=== PATIENT | female | born 1965 | race American Indian/Alaskan Native ===

== ENCOUNTER 2018-06-27 10:32 | Observation (INO) | payer MEDICAID, OTHER ==
--- NOTE | 2018-06-27 11:32 | ED PDOC ---
Arrival/HPI - General Chief Complaint: Chest Pain Time Seen by Provider: 06/27/18 10:44 Historian: Patient - History of Present Illness Narrative History of Present Illness (Text): 06/27/18 11:21 53 year old female, with past medical history of anemia, anxiety, arthritis, asthma, bipolar disorder, bronchitis, COPD, depression, and HTN, presents to the Emergency department via EMS complaining of sudden onset of chest pain since this morning. Patient states pain started approximately 1 hour prior arrival as she was walking. Denies pleuritic pain. Patient states radiating pain to her left arm making it "hard to breathe". Patient reports receiving aspirin prior to arrival with improvement to symptoms. She denies leg pain or swelling. She denies numbness or tingling. Pain does not radiate to neck or back. States that she has had this pain intermittently in the past but symptoms will go away and she has not seen a regional clinical director in past. Time/Duration: Prior to Arrival Symptom Onset: Gradual Symptom Course: Improving Quality: Aching Activities at Onset: Light Context: Home Past Medical History - Provider Review Nursing Documentation Reviewed: Yes - Infectious Disease Hx of Infectious Diseases: None - Tetanus Immunization Tetanus Immunization: Unknown - Past Medical History Past Medical History: Unable to Obtain - Cardiac Hx Heart Murmur: Yes Hx Hypertension: Yes - Pulmonary Hx Asthma: Yes Hx Bronchitis: Yes Hx Chronic Obstructive Pulmonary Disease (COPD): Yes - HEENT Hx HEENT Disorder: No - Hematological/Oncological Hx Anemia: Yes - Integumentary Hx Dermatological Disorder: No - Musculoskeletal/Rheumatological Hx Arthritis: Yes - Genitourinary/Gynecological Hx Sexually Transmitted Diseases: No - Psychiatric Hx Anxiety: Yes Hx Bipolar Disorder: Yes Hx Depression: Yes Hx Schizophrenia: Yes Hx Substance Use: No - Past Surgical History Past Surgical History: Unable to Obtain - Anesthesia Hx Anesthesia: Yes Hx Anesthesia Reactions: No Hx Malignant Hyperthermia: No - Suicidal Assessment Feels Threatened In Home Enviroment: No Family/Social History - Physician Review Nursing Documentation Reviewed: Yes Family/Social History: No Known Family HX Smoking Status: Heavy Smoker > 10 Cigarettes Daily Hx Alcohol Use: No Hx Substance Use: No Substance used: heroin Hx Substance Use Treatment: No Allergies/Home Meds Allergies/Adverse Reactions: Allergies fluphenazine HCl [From Prolixin] Allergy (Verified 02/07/18 11:10) ANGIOEDEMA haloperidol [From Haldol] Allergy (Verified 02/07/18 11:10) ANGIOEDEMA haloperidol lactate [From Haldol] Allergy (Unverified 02/07/18 11:10) Home Medications: Home Meds Medication Instructions Recorded Confirmed Gabapentin [Neurontin] 800 mg PO TID 02/07/18 02/07/18 Methadone [Methadose] 100 mg PO DAILY 02/07/18 02/07/18 Review of Systems - Review of Systems Constitutional: absent: Fevers Respiratory: SOB Cardiovascular: Chest Pain Gastrointestinal: absent: Abdominal Pain, Diarrhea, Nausea, Vomiting Musculoskeletal: absent: Back Pain, Neck Pain Neurological: absent: Headache, Dizziness, Focal Weakness Endocrine: absent: Diaphoresis, Polyuria Hemo/Lymphatic: absent: Easy Bleeding Psychiatric: absent: Anxiety, Depression, Suicidal Ideation Physical Exam - Physical Exam Narrative Physical Exam (Text): 06/27/18 11:21 Head: Atraumatic. Normocephalic. Eyes: PERRL. EOMI. Conjunctivae are not pale. ENT: Mucous membranes are moist and intact. Oropharynx is clear and symmetric. Neck: Supple. Full ROM. No JVD. No lymphadenopathy. Cardiovascular: Regular rate. Regular rhythm. No murmurs, rubs, or gallops. Distal pulses are 2+ and symmetric. Pulmonary/Chest: No evidence of respiratory distress. Clear to auscultation bilaterally. No wheezing, rales or rhonchi. Abdominal: Soft and non-distended. There is no tenderness. No rebound, guarding, or rigidity. No organomegaly. Good bowel sounds. Back: No CVA tenderness. Extremities: No pitting edema. No cyanosis. No clubbing. Full range of motion in all extremities. No calf tenderness. Skin: Skin is warm and dry. No petechiae. No purpura. Neurological: Alert, awake, and oriented. Motor and sensory exam intact. No slurred speech. No meningeal signs. Psychiatric: Good eye contact. At times will become agitated with staff when asking to contact Methadone clinic. States "I have stuff going on but I'm not depressed or suicidal". Is cooperative with my exam. Vital Signs Reviewed: Yes Vital Signs Temp Pulse Resp BP Pulse Ox 06/27/18 16:23 62 06/27/18 16:03 61 18 173/94 H 98 06/27/18 15:30 59 L 18 160/95 H 97 06/27/18 10:34 98.4 F 67 18 129/91 H 98 Temperature: Afebrile Blood Pressure: Normal Pulse: Regular Respiratory Rate: Normal Appearance: Positive for: Well-Appearing, Non-Toxic, Comfortable Pain Distress: Mild Mental Status: Positive for: Alert and Oriented X 3 Medical Decision Making ED Course and Treatment: 06/27/18 11:21 Impression: 53 year old female presents to the Emergency department complaining of chest pain. Plan: -- EKG -- Labs -- Chest X-ray -- Urinalysis -- Reassess and disposition Prior Visits: Notes and results from previous visits were reviewed. Progress Notes: Patient is a smoker. She reports family history of "heart problems" stating mother had pacemaker and father from complications of heart disease she believes. I reviewed her past available records. Currently she is cooperative but admits to past issues with substance abuse and addiction. She has not had cardiology workup in past, states no prior echo or cath. She states during recent admission at [facility] they told her she "needed a stent". Currently she is pain free, RECEIVED ASPIRIN PRIOR to arrival. Have recommended admission for serial exams, cardiology consultation. She has been informed of treatment plan, she is agreeable at this time. Chest X-ray reviewed by radiologist, shows no active disease. 06/27/18 16:58 Patient denies dysuria or frequency. Patient with no cva tenderness. Case discussed with hospitalist, accepts admission to service. Care turned over to hospitalist team at 1300. No chest pain on re-evaluation. - Lab Interpretations Lab Results: 06/27/18 11:45 06/27/18 11:45 Lab Results 06/27/18 11:45: Triglycerides 81, Cholesterol 154, LDL Cholesterol Direct 51, HDL Cholesterol 71 H 06/27/18 11:45: Sodium 141, Potassium 4.1, Chloride 105, Carbon Dioxide 27, Anion Gap 12, BUN 16, Creatinine 0.8, Est GFR ( Amer) > 60, Est GFR (Non- Af Amer) > 60, Random Glucose 93, Calcium 9.0, Total Bilirubin 0.4, AST 26, ALT 27, Alkaline Phosphatase 93, Lactate Dehydrogenase 599, Total Creatine Kinase 244 H, CK-MB (CK-2) 1.9, CK-MB (CK-2) % Cancelled, Troponin I < 0.01, Total Protein 7.1, Albumin 3.7, Globulin 3.4, Albumin/Globulin Ratio 1.1 06/27/18 11:45: PT 11.6, INR 1.01, APTT 27.5 06/27/18 11:45: WBC 8.0 D, RBC 4.23, Hgb 13.0, Hct 37.7, MCV 89.1, MCH 30.7, MCHC 34.5, RDW 13.2, Plt Count 243, MPV 9.1, Gran % 75.5 H, Lymph % (Auto) 17.5 L, Dillon % (Auto) 5.9, Eos % (Auto) 1.0 L, Baso % (Auto) 0.1, Gran # 6.06, Lymph # (Auto) 1.4, Dillon # (Auto) 0.5, Eos # (Auto) 0.1, Baso # (Auto) 0.01 - RAD Interpretation Radiology Orders: 06/27/18 11:21 CHEST PORTABLE [RAD] Stat - EKG Interpretation EKG Interpretation (Text): 06/27/18 16:57 EKG at 1042 normal sinus rhythm rate of 71, possible left atrial enlargement Interpreted by ED Physician: Yes Type: 12 lead EKG - Medication Orders Current Medication Orders: Aspirin (Aspirin Chewable) 81 mg PO DAILY TONE Discontinued Medications Morphine Sulfate (Morphine) 2 mg IVP STAT STA Stop: 06/27/18 13:01 Last Admin: 06/27/18 13:54 Dose: 2 mg MAR Pain Assessment Document 06/27/18 13:54 EQ (Rec: 06/27/18 13:55 EQ [id number]) Pain Reassessment Is this a pain reassessment? No Sleep Is patient sleeping during reassessment? No Presence of Pain Presence of Pain Yes Pain Scale Used Pain Scale Used Numeric IVP Administration Document 06/27/18 13:54 EQ (Rec: 06/27/18 13:55 EQ [email or web address]) Charges for Administration # of IVP Administrations 1 - Scribe Statement The provider has reviewed the documentation as recorded by the Scribe Cris Johnson. All medical record entries made by the Scribe were at my direction and personally dictated by me. I have reviewed the chart and agree that the record accurately reflects my personal performance of the history, physical exam, medical decision making, and the department course for this patient. I have also personally directed, reviewed, and agree with the discharge instructions and disposition. Disposition/Present on Arrival - Present on Arrival Any Indicators Present on Arrival: No History of DVT/PE: No History of Uncontrolled Diabetes: No Urinary Catheter: No History of Decub. Ulcer: No History Surgical Site Infection Following: None - Disposition Have Diagnosis and Disposition been Completed?: Yes Diagnosis: Chest pain Disposition: HOSPITALIZED Disposition Time: 12:30 Patient Plan: Admission Patient Problems: Current Active Problems Problem Status Onset Chest pain Acute Condition: FAIR
[2018-06-27 11:56] LABS: BASO # 0.01 K/mm3 (0.0-2.0); BASO % 0.1 % (0.0-3.0); EOS # 0.1 (0.0-0.7); GRAN # 6.06 (1.4-6.5); GRAN % 75.5 % (50.0-68.0); LYMPH # 1.4 (1.2-3.4); LYMPH % 17.5 % (22.0-35.0); MEAN CELL VOLUME 89.1 fl (80.0-105.0); MEAN CORPUSCULAR HEMOGLOBIN 30.7 pg (25.0-35.0); MEAN CORPUSCULAR HGB CONC 34.5 g/dl (31.0-37.0); MEAN PLATELET VOLUME 9.1 fl (7.0-11.0); MONO # 0.5 (0.1-0.6); MONO % 5.9 % (1.0-6.0); RBC 4.23 10^6/uL (3.5-6.1); RED CELL DISTRIBUTION WIDTH 13.2 % (11.5-14.5)
[2018-06-27 12:05] LABS: ALB/GLOB RATIO 1.1 (1.1-1.8); ALBUMIN 3.7 g/dL (3.0-4.8); ALT/SGPT 27 U/L (7-56); AST/SGOT 26 U/L (14-36); BLOOD UREA NITROGEN 16 mg/dL (7-21); GFR NON-AFRICAN AMERICAN > 60
--- NOTE | 2018-06-27 12:05 | RAD ---
Date of service: 06/27/2018 HISTORY: chest pain COMPARISON: 12/06/2016 FINDINGS: LUNGS: No active pulmonary disease. PLEURA: No significant pleural effusion identified, no pneumothorax apparent. CARDIOVASCULAR: Normal. OSSEOUS STRUCTURES: No significant abnormalities. VISUALIZED UPPER ABDOMEN: Normal. OTHER FINDINGS: None. IMPRESSION: No active disease.
[2018-06-27 12:06] LABS: INR 1.01; PARTIAL THROMBOPLASTIN TIME 27.5 Seconds (25.1-36.5); PROTHROMBIN TIME 11.6 SECONDS (9.4-12.5)
[2018-06-27 12:17] LABS: TROPONIN I < 0.01 ng/mL
[2018-06-27 12:24] LABS: CK-MB 1.9 ng/mL (0.0-3.6)
[2018-06-27] MEDS ORDERED: Morphine 2 mg/ml ISec IVP STA (13:00)
[2018-06-27 13:58] LABS: PH,URINE 6.5 (4.7-8.0); URINE BILIRUBIN NEGATIVE (NEGATIVE); URINE BLOOD NEGATIVE (NEGATIVE); URINE GLUCOSE (UA) NEGATIVE (NEGATIVE); URINE LEUKOCYTE ESTERASE NEGATIVE Leu/uL (NEGATIVE); URINE PROTEIN TRACE mg/dL (<30 mg/dL)
[2018-06-27 14:04] LABS: URINE APPEARANCE CLEAR (CLEAR); URINE COLOR YELLOW (YELLOW)
[2018-06-27 14:17] LABS: URINE RBC 0 - 2 /hpf (0-2)
[2018-06-27 14:18] LABS: URINE BACTERIA MANY (NEG)
[2018-06-27 14:26] LABS: BARBITURATES, UR NEGATIVE (NEGATIVE); BENZODIAZEPINES, UR NEGATIVE (NEGATIVE); OPIATES, UR POSITIVE (NEGATIVE); PHENCYCLIDINE, UR NEGATIVE (NEGATIVE)
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
[2018-06-27 16:35] LABS: HDL CHOLESTEROL 71 mg/dL (29-60)
[2018-06-27 16:46] LABS: LDL CHOLESTEROL 51 mg/dL (0-129)
[2018-06-27 18:26] VITALS: BMI 33.1
--- NOTE | 2018-06-27 21:32 | CARD ---
APPROVED REPORT Date of service: 06/27/2018 EKG Measurement Heart [id number] <Conclusion> Normal sinus rhythm Possible Left atrial enlargement Borderline ECG
[2018-06-28 05:29] VITALS: O2SAT 98
[2018-06-28 10:00] LABS: ALBUMIN 3.8 g/dL (3.0-4.8); ALT/SGPT 24 U/L (7-56); AST/SGOT 29 U/L (14-36); BLOOD UREA NITROGEN 13 mg/dL (7-21); CALCIUM 9.4 mg/dL (8.4-10.5); GFR NON-AFRICAN AMERICAN > 60
[2018-06-28 10:04] LABS: BASO # 0.01 K/mm3 (0.0-2.0); BASO % 0.2 % (0.0-3.0); EOS # 0.1 (0.0-0.7); EOS % 1.6 % (1.5-5.0); GRAN # 3.67 (1.4-6.5); GRAN % 63.3 % (50.0-68.0); HEMOGLOBIN 13.2 g/dL (12.0-16.0); LYMPH # 1.7 (1.2-3.4); LYMPH % 29.4 % (22.0-35.0); MEAN CELL VOLUME 89.6 fl (80.0-105.0); MEAN CORPUSCULAR HEMOGLOBIN 30.6 pg (25.0-35.0); MEAN CORPUSCULAR HGB CONC 34.2 g/dl (31.0-37.0); MEAN PLATELET VOLUME 9.1 fl (7.0-11.0); MONO # 0.3 (0.1-0.6); MONO % 5.5 % (1.0-6.0); RBC 4.31 10^6/uL (3.5-6.1); RED CELL DISTRIBUTION WIDTH 13.3 % (11.5-14.5); WHITE BLOOD COUNT 5.8 10^3/ul (4.5-11.0)
[2018-06-28 11:51] VITALS: BP 157/97; PULSE 53; RESP 18; TEMP 97.5
[2018-06-28 12:42] LABS: FREE T4 1.06 ng/dL (0.78-2.19); T4 10.4 ug/dL (5.5-11.0)
--- NOTE | 2018-06-28 14:38 | CP.PCM.DIS ---
<Basil Delgado - Last Filed: 06/28/18 14:35> Provider - Provider Date of Admission: 06/27/18 13:06 Attending physician: Jimmie Alas MD Primary care physician: Briseyda Muller MD Consults: Cardiology, Dr. Busch Time Spent in preparation of Discharge (in minutes): 35 Hospital Course - Lab Results Lab Results: Most Recent Lab Values WBC 5.8 10^3/ul (4.5-11.0) D 06/28/18 09:40 RBC 4.31 10^6/uL (3.5-6.1) 06/28/18 09:40 Hgb 13.2 g/dL (12.0-16.0) 06/28/18 09:40 Hct 38.6 % (36.0-48.0) 06/28/18 09:40 MCV 89.6 fl (80.0-105.0) 06/28/18 09:40 MCH 30.6 pg (25.0-35.0) 06/28/18 09:40 MCHC 34.2 g/dl (31.0-37.0) 06/28/18 09:40 RDW 13.3 % (11.5-14.5) 06/28/18 09:40 Plt Count 267 10^3/uL (120.0-450.0) 06/28/18 09:40 MPV 9.1 fl (7.0-11.0) 06/28/18 09:40 Gran % 63.3 % (50.0-68.0) 06/28/18 09:40 Lymph % (Auto) 29.4 % (22.0-35.0) 06/28/18 09:40 [place] % (Auto) 5.5 % (1.0-6.0) 06/28/18 09:40 Eos % (Auto) 1.6 % (1.5-5.0) 06/28/18 09:40 Baso % (Auto) 0.2 % (0.0-3.0) 06/28/18 09:40 Gran # 3.67 (1.4-6.5) 06/28/18 09:40 Lymph # (Auto) 1.7 (1.2-3.4) 06/28/18 09:40 [place] # (Auto) 0.3 (0.1-0.6) 06/28/18 09:40 Eos # (Auto) 0.1 (0.0-0.7) 06/28/18 09:40 Baso # (Auto) 0.01 K/mm3 (0.0-2.0) 06/28/18 09:40 PT 11.6 SECONDS (9.4-12.5) 06/27/18 11:45 INR 1.01 06/27/18 11:45 APTT 27.5 Seconds (25.1-36.5) 06/27/18 11:45 D-Dimer, Quantitative < 200 ng/mlDDU (0-243) 06/27/18 18:30 Sodium 139 mmol/L (132-148) 06/28/18 09:40 Potassium 4.5 mmol/L (3.6-5.0) 06/28/18 09:40 Chloride 102 mmol/L (98-107) 06/28/18 09:40 Carbon Dioxide 30 mmol/L (21-33) 06/28/18 09:40 Anion Gap 11 (10-20) 06/28/18 09:40 BUN 13 mg/dL (7-21) 06/28/18 09:40 Creatinine 0.7 mg/dl (0.7-1.2) 06/28/18 09:40 Est GFR ( Amer) > 60 06/28/18 09:40 Est GFR (Non-Af Amer) > 60 06/28/18 09:40 Random Glucose 95 mg/dL (70-110) 06/28/18 09:40 Hemoglobin A1c 5.8 % (4.2-6.5) 06/27/18 11:45 Calcium 9.4 mg/dL (8.4-10.5) 06/28/18 09:40 Total Bilirubin 0.4 mg/dL (0.2-1.3) 06/28/18 09:40 AST 29 U/L (14-36) 06/28/18 09:40 ALT 24 U/L (7-56) 06/28/18 09:40 Alkaline Phosphatase 83 U/L (38-126) 06/28/18 09:40 Lactate Dehydrogenase 599 U/L (333-699) 06/27/18 11:45 Total Creatine Kinase 244 U/L (35-230) H 06/27/18 11:45 CK-MB (CK-2) 1.9 ng/mL (0.0-3.6) 06/27/18 11:45 CK-MB (CK-2) % Cancelled 06/27/18 11:45 Troponin I < 0.01 ng/mL 06/28/18 00:24 Total Protein 7.5 g/dL (5.8-8.3) 06/28/18 09:40 Albumin 3.8 g/dL (3.0-4.8) 06/28/18 09:40 Globulin 3.7 gm/dL 06/28/18 09:40 Albumin/Globulin Ratio 1.0 (1.1-1.8) L 06/28/18 09:40 Triglycerides 81 mg/dL (35-160) 06/27/18 11:45 Cholesterol 154 mg/dL (130-200) 06/27/18 11:45 LDL Cholesterol Direct 51 mg/dL (0-129) 06/27/18 11:45 HDL Cholesterol 71 mg/dL (29-60) H 06/27/18 11:45 Free T4 1.06 ng/dL (0.78-2.19) 06/28/18 10:00 Thyroxine (T4) 10.4 ug/dL (5.5-11.0) 06/28/18 10:00 TSH 3rd Generation 0.43 mIU/mL (0.46-4.68) L 06/27/18 11:45 Urine Color Yellow (YELLOW) 06/27/18 13:40 Urine Appearance Clear (CLEAR) 06/27/18 13:40 Urine pH 6.5 (4.7-8.0) 06/27/18 13:40 Ur Specific [place] 1.025 (1.005-1.035) 06/27/18 13:40 Urine Protein Trace mg/dL (<30 mg/dL) H 06/27/18 13:40 Urine Glucose (UA) Negative mg/dL (NEGATIVE) 06/27/18 13:40 Urine Ketones Negative mg/dL (NEGATIVE) 06/27/18 13:40 Urine Blood Negative (NEGATIVE) 06/27/18 13:40 Urine Nitrate Negative (NEGATIVE) 06/27/18 13:40 Urine Bilirubin Negative (NEGATIVE) 06/27/18 13:40 Urine Urobilinogen 2.0 E.U./dL (<1 E.U./dL) H 06/27/18 13:40 Ur Leukocyte Esterase Negative Morgan/uL (NEGATIVE) 06/27/18 13:40 Urine RBC 0 - 2 /hpf (0-2) 06/27/18 13:40 Urine WBC 1 - 3 /hpf (0-6) 06/27/18 13:40 Ur Epithelial Cells 6 - 8 /hpf (0-5) 06/27/18 13:40 Urine Bacteria Many (NEG) 06/27/18 13:40 Urine Opiates Screen Positive (NEGATIVE) H 06/27/18 13:40 Urine Methadone Screen Positive (NEGATIVE) H 06/27/18 13:40 Ur Barbiturates Screen Negative (NEGATIVE) 06/27/18 13:40 Ur Phencyclidine Scrn Negative (NEGATIVE) 06/27/18 13:40 Ur Amphetamines Screen Negative (NEGATIVE) 06/27/18 13:40 U Benzodiazepines Scrn Negative (NEGATIVE) 06/27/18 13:40 U Oth Cocaine Metabols Positive (NEGATIVE) H 06/27/18 13:40 U Cannabinoids Screen Negative (NEGATIVE) 06/27/18 13:40 - Hospital Course Hospital Course: This is a 53 year old with an extensive past medical history presenting to the hospital via EMS for CP. Pain started at 10am while patient was walking to methadone clinic and is described as dull, lasting 15 seconds, associated with nausea, non radiating and rated 10/10. Patient admits to similar pain one week ago that resolved spontaneously. Patient states she went to [facility] [place] one year ago for cardiac evaluation but denied further workup at that time. She states she went to Dr. Fong, motor equipment sergeant at [address] [place] [address] one week ago but has not had any testing done. Patient did well overnight and has no complaints the following day. No chest pain during the hospital course. Blood work and electrolytes are unremarkable. UDS positive for opiates, methadone and cocaine. Troponins negative x3. NSR at [address] changes on EKG today. Patient agrees with discharge and agrees to follow up with PMD and her motor equipment sergeant. Discharge Exam - Head Exam Head Exam: ATRAUMATIC, NORMAL INSPECTION - Eye Exam Eye Exam: EOMI Pupil Exam: PERRL - ENT Exam ENT Exam: Mucous Membranes Moist - Respiratory Exam Respiratory Exam: Clear to PA & Lateral. absent: Respiratory Distress - Cardiovascular Exam Cardiovascular Exam: REGULAR RHYTHM, +S1, +S2 - GI/Abdominal Exam GI & Abdominal Exam: Normal Bowel Sounds. absent: Distended, Firm - Extremities Exam Extremities exam: normal inspection, pedal pulses present - Neurological Exam Neurological exam: Alert, Oriented x3 - Skin Skin Exam: Normal Color, Warm Discharge Plan - Follow Up Plan Condition: FAIR Disposition: HOME/ ROUTINE Instructions: Chest Pain (ED), Chest Pain (DC), Chest Pain (GEN) Additional Instructions: Please follow up with your PMD, Dr. Muller within 3-5 days of discharge. Please follow up with your motor equipment sergeant, Dr. Fong within 3-5 days of discharge. Please return to the ED if any new or worsening symptoms. Please stop smoking. Referrals: Briseyda Muller MD [Primary Care Provider] - <Dago Christianson - Last Filed: 06/28/18 17:44> Provider - Provider Date of Admission: 06/27/18 13:06 Attending physician: Jimmie Alas MD Primary care physician: Briseyda Muller MD Hospital Course - Lab Results Lab Results: Most Recent Lab Values WBC 5.8 10^3/ul (4.5-11.0) D 06/28/18 09:40 RBC 4.31 10^6/uL (3.5-6.1) 06/28/18 09:40 Hgb 13.2 g/dL (12.0-16.0) 06/28/18 09:40 Hct 38.6 % (36.0-48.0) 06/28/18 09:40 MCV 89.6 fl (80.0-105.0) 06/28/18 09:40 MCH 30.6 pg (25.0-35.0) 06/28/18 09:40 MCHC 34.2 g/dl (31.0-37.0) 06/28/18 09:40 RDW 13.3 % (11.5-14.5) 06/28/18 09:40 Plt Count 267 10^3/uL (120.0-450.0) 06/28/18 09:40 MPV 9.1 fl (7.0-11.0) 06/28/18 09:40 Gran % 63.3 % (50.0-68.0) 06/28/18 09:40 Lymph % (Auto) 29.4 % (22.0-35.0) 06/28/18 09:40 [place] % (Auto) 5.5 % (1.0-6.0) 06/28/18 09:40 Eos % (Auto) 1.6 % (1.5-5.0) 06/28/18 09:40 Baso % (Auto) 0.2 % (0.0-3.0) 06/28/18 09:40 Gran # 3.67 (1.4-6.5) 06/28/18 09:40 Lymph # (Auto) 1.7 (1.2-3.4) 06/28/18 09:40 [place] # (Auto) 0.3 (0.1-0.6) 06/28/18 09:40 Eos # (Auto) 0.1 (0.0-0.7) 06/28/18 09:40 Baso # (Auto) 0.01 K/mm3 (0.0-2.0) 06/28/18 09:40 PT 11.6 SECONDS (9.4-12.5) 06/27/18 11:45 INR 1.01 06/27/18 11:45 APTT 27.5 Seconds (25.1-36.5) 06/27/18 11:45 D-Dimer, Quantitative < 200 ng/mlDDU (0-243) 06/27/18 18:30 Sodium 139 mmol/L (132-148) 06/28/18 09:40 Potassium 4.5 mmol/L (3.6-5.0) 06/28/18 09:40 Chloride 102 mmol/L (98-107) 06/28/18 09:40 Carbon Dioxide 30 mmol/L (21-33) 06/28/18 09:40 Anion Gap 11 (10-20) 06/28/18 09:40 BUN 13 mg/dL (7-21) 06/28/18 09:40 Creatinine 0.7 mg/dl (0.7-1.2) 06/28/18 09:40 Est GFR ( Amer) > 60 06/28/18 09:40 Est GFR (Non-Af Amer) > 60 06/28/18 09:40 Random Glucose 95 mg/dL (70-110) 06/28/18 09:40 Hemoglobin A1c 5.8 % (4.2-6.5) 06/27/18 11:45 Calcium 9.4 mg/dL (8.4-10.5) 06/28/18 09:40 Total Bilirubin 0.4 mg/dL (0.2-1.3) 06/28/18 09:40 AST 29 U/L (14-36) 06/28/18 09:40 ALT 24 U/L (7-56) 06/28/18 09:40 Alkaline Phosphatase 83 U/L (38-126) 06/28/18 09:40 Lactate Dehydrogenase 599 U/L (333-699) 06/27/18 11:45 Total Creatine Kinase 244 U/L (35-230) H 06/27/18 11:45 CK-MB (CK-2) 1.9 ng/mL (0.0-3.6) 06/27/18 11:45 CK-MB (CK-2) % Cancelled 06/27/18 11:45 Troponin I < 0.01 ng/mL 06/28/18 00:24 Total Protein 7.5 g/dL (5.8-8.3) 06/28/18 09:40 Albumin 3.8 g/dL (3.0-4.8) 06/28/18 09:40 Globulin 3.7 gm/dL 06/28/18 09:40 Albumin/Globulin Ratio 1.0 (1.1-1.8) L 06/28/18 09:40 Triglycerides 81 mg/dL (35-160) 06/27/18 11:45 Cholesterol 154 mg/dL (130-200) 06/27/18 11:45 LDL Cholesterol Direct 51 mg/dL (0-129) 06/27/18 11:45 HDL Cholesterol 71 mg/dL (29-60) H 06/27/18 11:45 Free T4 1.06 ng/dL (0.78-2.19) 06/28/18 10:00 Thyroxine (T4) 10.4 ug/dL (5.5-11.0) 06/28/18 10:00 TSH 3rd Generation 0.43 mIU/mL (0.46-4.68) L 06/27/18 11:45 Urine Color Yellow (YELLOW) 06/27/18 13:40 Urine Appearance Clear (CLEAR) 06/27/18 13:40 Urine pH 6.5 (4.7-8.0) 06/27/18 13:40 Ur Specific [place] 1.025 (1.005-1.035) 06/27/18 13:40 Urine Protein Trace mg/dL (<30 mg/dL) H 06/27/18 13:40 Urine Glucose (UA) Negative mg/dL (NEGATIVE) 06/27/18 13:40 Urine Ketones Negative mg/dL (NEGATIVE) 06/27/18 13:40 Urine Blood Negative (NEGATIVE) 06/27/18 13:40 Urine Nitrate Negative (NEGATIVE) 06/27/18 13:40 Urine Bilirubin Negative (NEGATIVE) 06/27/18 13:40 Urine Urobilinogen 2.0 E.U./dL (<1 E.U./dL) H 06/27/18 13:40 Ur Leukocyte Esterase Negative Morgan/uL (NEGATIVE) 06/27/18 13:40 Urine RBC 0 - 2 /hpf (0-2) 06/27/18 13:40 Urine WBC 1 - 3 /hpf (0-6) 06/27/18 13:40 Ur Epithelial Cells 6 - 8 /hpf (0-5) 06/27/18 13:40 Urine Bacteria Many (NEG) 06/27/18 13:40 Urine Opiates Screen Positive (NEGATIVE) H 06/27/18 13:40 Urine Methadone Screen Positive (NEGATIVE) H 06/27/18 13:40 Ur Barbiturates Screen Negative (NEGATIVE) 06/27/18 13:40 Ur Phencyclidine Scrn Negative (NEGATIVE) 06/27/18 13:40 Ur Amphetamines Screen Negative (NEGATIVE) 06/27/18 13:40 U Benzodiazepines Scrn Negative (NEGATIVE) 06/27/18 13:40 U Oth Cocaine Metabols Positive (NEGATIVE) H 06/27/18 13:40 U Cannabinoids Screen Negative (NEGATIVE) 06/27/18 13:40 Attending/Attestation - Attestation I have personally seen and examined this patient.: Yes I have fully participated in the care of the patient.: Yes I have reviewed all pertinent clinical information, including history, physical exam and plan: Yes Notes (Text): 06/28/18 17:43 attending note; patient is alert and awake. Currently denies any chest pain, shortness of breath. Denies any nausea, vomiting. Denies any abdominal pain, urinary, bowel symptoms. Patient is a 53-year-old female with past medical history of schizoaffective disorder, bipolar disorder, polysubstance abuse, anemia, anxiety, COPD, depression and hypertension is admitted with chest pain. EKG showed no acute ST-T changes. Cardiac enzymes 3 negative. Cardiology evaluation appreciated. Patient had previous echo 1 year ago which was normal. Patient follows up with Dr. Fong motor equipment sergeant as outpatient. Urine drug screen positive for opiates, methadone and cocaine. complete drug abuse cessation is strongly advised. Active smoking; smoking cessation is strongly advised. cleared by cardiology for discharge. Upon discharge the patient will follow-up with PMD Dr. muller.
--- NOTE | 2018-06-28 15:30 | CARD ---
APPROVED REPORT Date of service: 06/28/2018 EKG Measurement Heart [id number] <Conclusion> Sinus bradycardia Otherwise normal ECG
--- NOTE | 2018-06-28 22:25 | CON ---
Copied To: Steve Busch MD Attending MD: Steve Busch MD DATE: 06/28/2018 CARDIOLOGY CONSULT REASON FOR CONSULTATION: Chest pain. HISTORY OF PRESENT ILLNESS: The patient is a 53-year-old -[place] female who has a history of asthma, arthritis, bipolar disorder, and depression as well as history of hypertension. She presented because of chest discomfort, area, sharp in nature, unsteady and associated with shortness of breath. The patient denies any prior history of heart attack and is unaware of any cardiac workup, such as a stress test or cardiac catheterization. The patient is tested positive for cocaine, opioids, and methadone. The patient has been testing positive for opioids and cocaine several times in the recent past according to [employer] database. SOCIAL HISTORY: The patient is a smoker, drinker, cocaine and heroin abuser. MEDICATIONS: Aspirin 81 mg once a day, clonidine 0.1 mg three times a day, heparin 5000 units subcutaneously every 12 hours, methadone 120 mg once a day, Pepcid 40 mg once a day. REVIEW OF SYSTEMS: No nausea or vomiting. No fever or chills. PHYSICAL EXAMINATION GENERAL: The patient is a middle-aged female who does not appear in any distress. VITAL SIGNS: Blood pressure 157/97, earlier it was 129/80, heart rate 68, temperature 97.4, respiration 18. HEENT: Normocephalic. NECK: Mild diffuse goiter. CHEST: Clear. HEART: S1, S2 regular. EXTREMITIES: Trace leg edema. LABORATORY DATA: Today's CBC is entirely within normal limit. Today's SMA-7 is entirely within normal limit. Three sets of troponins are negative. TSH level is below normal at 0.43. D-dimer is within normal limit. EKG revealed sinus bradycardia at the rate of 50. ASSESSMENT: 1. Chest pain, myocardial infarction is ruled out. 2. Mild sinus bradycardia. 3. Cocaine and heroin abuse. 4. Mild goiter, rule out Graves disease. RECOMMENDATIONS: Continue aspirin, clonidine, subcutaneous heparin, and methadone. The patient's most recent echocardiography study performed in 11/2016 revealed normal ventricular size, wall thickness and ejection fraction with mild pulmonary hypertension. I will obtain serum T4 and free T4 levels. Steve Busch MD [facility] # [id number]
== END 2018-06-28 16:15 | disposition home or self-care (01) ==
LOC: ED 10:32 → ERH 13:06 → 2RNO 16:11
PROVIDERS: ADMIT Internal Medicine; ATTEND Internal Medicine
DX: R07.9 Chest pain, unspecified (principal); R00.1 Bradycardia, unspecified; F11.10 Opioid abuse, uncomplicated; F14.10 Cocaine abuse, uncomplicated; E04.9 Nontoxic goiter, unspecified; F25.9 Schizoaffective disorder, unspecified; F31.9 Bipolar disorder, unspecified; I10 Essential (primary) hypertension; J44.9 Chronic obstructive pulmonary disease, unspecified; F17.200 Nicotine dependence, unspecified, uncomplicated
CPT/HCPCS: 36415; 71045; 80053; 80061; 80324; 80345; 80346; 80349; 80353; 80358; 80361; 81001; 82550; 82553; 83036; 83615; 83992; 84439; 84443; 84484; 85025; 85378; 85610; 85730; 93005; 96374; 99285; G0378; J2270